=== PATIENT | male | born 1985 | race Two or more races ===

== ENCOUNTER 2017-06-28 12:00 | Emergency (ER) | payer SELFPAY ==
[~2017-06-28] VITALS: Ht 175.3 cm; Wt 68.0 kg
[2017-06-28 12:21] VITALS: BP 132/86
[2017-06-28] MEDS ORDERED: KETOROLAC TROMETH 60MG/2ML VIAL IM ONE (13:30)
== END 2017-06-28 14:23 | disposition home or self-care (01) ==
LOC: ER 12:00
DX: S93.402A Sprain of unspecified ligament of left ankle, initial encounter (principal); S93.401A Sprain of unspecified ligament of right ankle, initial encounter; S50.869A Insect bite (nonvenomous) of unspecified forearm, initial encounter; F17.210 Nicotine dependence, cigarettes, uncomplicated; L08.9 Local infection of the skin and subcutaneous tissue, unspecified; W57.XXXA Bitten or stung by nonvenomous insect and other nonvenomous arthropods, initial encounter; Y93.89 Activity, other specified; Y92.89 Other specified places as the place of occurrence of the external cause; Y99.8 Other external cause status
CPT/HCPCS: 73610; 96372